=== PATIENT | male | born 1995 | race Caucasian/White ===

== ENCOUNTER 2016-10-09 18:38 | Emergency (ER) | payer OTHER ==
[~2016-10-09] VITALS: Ht 188 cm; Wt 90.9 kg
[2016-10-09 18:48] VITALS: BP 126/62; TEMP 98.1
[2016-10-09 20:02] VITALS: PULSE 74
== END 2016-10-09 20:02 | disposition home or self-care (01) ==
LOC: COL.ER 18:38
DX: S01.111A Laceration without foreign body of right eyelid and periocular area, initial encounter (principal); W50.0XXA Accidental hit or strike by another person, initial encounter; Y93.67 Activity, basketball; Y92.008 Other place in unspecified non-institutional (private) residence as the place of occurrence of the external cause